=== PATIENT | female | born 2000 | race African-American/Black ===

== ENCOUNTER 2023-04-18 00:36 | Emergency (ER) | payer OTHER ==
[2023-04-18 00:55] VITALS: BP 127/76; PULSE 71; RESP 20; TEMP 97.6; BMI 36.3
[2023-04-18] MEDS ORDERED: MAG HYDROX/AL HYDROX/SIMETH 30 ML UNIT-DOSE CUP ONE (02:01)
[2023-04-18] MEDS: MAG HYDROX/AL HYDROX/SIMETH 30 ML UNIT-DOSE CUP PO ONE (02:02)
[2023-04-18] MEDS ORDERED: ACETAMINOPHEN INJECTION 100 ML IVPB ONE (02:07)
[2023-04-18] MEDS ORDERED: FAMOTIDINE 20 MG/50 ML IVPB 20 MG/50 ML MG IVPB ONE (02:08)
[2023-04-18] MEDS ORDERED: SIMETHICONE 80 MG TAB.CHEW (FP) ONE (02:16)
[2023-04-18] MEDS: ACETAMINOPHEN 1000 MG/100 ML BAG IVPB ONE (02:20)
[2023-04-18] MEDS: SIMETHICONE 80 MG TAB.CHEW (FP) PO ONE (02:20)
[2023-04-18 02:21] LABS: BASO % 1.3 % (0-2.0); EOS % 3.7 % (0-4.5); HEMATOCRIT 33.7 % (32.4-45.2); HEMOGLOBIN 11.1 GM/dL (10.7-15.3); LYMPH % 38.2 % (8-40); MCH 28.6 pg (25.7-33.7); MCHC 33.1 g/dl (32.0-36.0); MEAN CELL VOLUME 86.5 fl (80-96); MEAN PLT VOLUME 6.7 fl (7.5-11.1); MONO % 7.7 % (3.8-10.2); NEUT % 49.1 % (42.8-82.8); PLATELET COUNT 384 10^3/uL (134-434); RDW 20.5 % (11.6-15.6); WHITE BLOOD COUNT 9.8 K/mm3 (4.0-10.0)
[2023-04-18] MEDS: FAMOTIDINE 20 MG/50 ML IVPB 20 MG/50 ML MG IVPB ONE (02:31)
[2023-04-18 02:56] LABS: POTASSIUM 5.1 mmol/L (3.5-5.1)
[2023-04-18 02:59] LABS: ALBUMIN 3.8 g/dl (3.4-5.0); CALCIUM 8.5 mg/dL (8.5-10.1); MAGNESIUM 2.4 mg/dL (1.8-2.4)
[2023-04-18 03:02] LABS: CREATININE 0.6 mg/dL (0.55-1.3)
[2023-04-18 03:04] LABS: BILIRUBIN,TOTAL 0.4 mg/dL (0.2-1); TOT PROT 7.4 g/dl (6.4-8.2)
[2023-04-18 03:13] LABS: URINE COLOR ORANGE
[2023-04-18 03:14] LABS: PH,URINE 5.5 (5.0-8.0); URINE APPEARANCE CLOUDY; URINE BILIRUBIN NEGATIVE (NEGATIVE); URINE GLUCOSE (UA) NEGATIVE (NEGATIVE); URINE KETONE TRACE (NEGATIVE); URINE LEUK ESTERASE NEGATIVE (NEGATIVE); URINE NITRITE NEGATIVE (NEGATIVE); URINE PROTEIN 30 (NEGATIVE)
[2023-04-18 03:15] LABS: EPI CELLS 34.2 /uL (0-25.1); HYALINE CASTS 1.06 /uL (0-3.1); URINE BACTERIA 664.4 /uL (0-1359); URINE RBC 6287.7 /uL (0-23.9); URINE WBC 437.8 /uL (0-25.8)
== END 2023-04-18 04:43 | disposition home or self-care (01) ==
LOC: JER 00:36
PROC: 3E033GC Introduction of Other Therapeutic Substance into Peripheral Vein, Percutaneous Approach (ICD-10-PCS; principal; 2023-04-18)
PROC: 3E033NZ Introduction of Analgesics, Hypnotics, Sedatives into Peripheral Vein, Percutaneous Approach (ICD-10-PCS; 2023-04-18)
DX: R10.12 Left upper quadrant pain (principal); R10.31 Right lower quadrant pain; R10.32 Left lower quadrant pain; R11.2 Nausea with vomiting, unspecified; K59.00 Constipation, unspecified; R19.7 Diarrhea, unspecified
CPT/HCPCS: 36415; 80053; 81003; 83690; 83735; 84703; 85025; 87086; 99284-25; J0131

== ENCOUNTER 2023-04-18 18:35 | Emergency (ER) | payer OTHER ==
[2023-04-18 18:43] VITALS: RESP 18; BMI 36.3
[2023-04-18 20:26] LABS: BASO % 1.1 % (0-2.0); EOS % 3.1 % (0-4.5); HEMATOCRIT 34.8 % (32.4-45.2); HEMOGLOBIN 11.2 GM/dL (10.7-15.3); LYMPH % 33.5 % (8-40); MCH 28.2 pg (25.7-33.7); MCHC 32.3 g/dl (32.0-36.0); MEAN CELL VOLUME 87.3 fl (80-96); MEAN PLT VOLUME 7.4 fl (7.5-11.1); MONO % 7.3 % (3.8-10.2); PLATELET COUNT 408 10^3/uL (134-434); RBC 3.99 M/mm3 (3.60-5.2); RDW 20.8 % (11.6-15.6); WHITE BLOOD COUNT 8.1 K/mm3 (4.0-10.0)
[2023-04-18 20:30] LABS: EPI CELLS 28 /uL (0-25.1); HYALINE CASTS 1 /uL (0-3.1); URINE APPEARANCE CLOUDY; URINE BACTERIA 743 /uL (0-1359); URINE BILIRUBIN NEGATIVE (NEGATIVE); URINE COLOR ORANGE; URINE GLUCOSE (UA) NEGATIVE (NEGATIVE); URINE KETONE NEGATIVE (NEGATIVE); URINE LEUK ESTERASE 1+ (NEGATIVE); URINE NITRITE NEGATIVE (NEGATIVE); URINE PROTEIN NEGATIVE (NEGATIVE); URINE RBC 1844 /uL (0-23.9); URINE UROBILINOGEN 0.2 mg/dL (0.2-1.0); URINE WBC 119 /uL (0-25.8)
[2023-04-18 20:52] LABS: POTASSIUM 4.8 mmol/L (3.5-5.1)
[2023-04-18 20:55] LABS: ALBUMIN 3.8 g/dl (3.4-5.0); BLOOD UREA NITROGEN 7.3 mg/dL (7-18)
[2023-04-18 20:57] LABS: CREATININE 0.6 mg/dL (0.55-1.3)
[2023-04-18 20:59] LABS: TOT PROT 7.4 g/dl (6.4-8.2)
[2023-04-19 04:04] VITALS: BP 107/60; PULSE 68; TEMP 98.1
== END 2023-04-19 04:26 | disposition home or self-care (01) ==
LOC: JER 18:35
DX: R10.11 Right upper quadrant pain (principal); R10.12 Left upper quadrant pain; R10.30 Lower abdominal pain, unspecified
CPT/HCPCS: 36415; 74177-TC; 76705-TC; 80053; 81003; 83690; 84703; 85025; 99285-25; Q9967